=== PATIENT | female | born 1970 | race Caucasian/White ===

== ENCOUNTER 2016-11-17 07:39 | Emergency (ER) | payer OTHER ==
[~2016-11-17] VITALS: Ht 167.6 cm; Wt 95.2 kg
[~2016-11-17 07:39] MED LIST: ADDERALL XR 3030 MG PO; ALBUTEROL SULF8.5 GM IH; ALPRAZOLAM ER2 MG; ALPRAZOLAM0.5 MG PO; ALPRAZOLAM1 MG PO; AMOXICILLIN500 M1 PO; AMOXICILLIN500 MG PO; AMPHETAMINE SAL30 MG PO; ANTIVERT25 MG PO; ASPIRIN325 MG PO; ATARAX,VISTARIL25 MG PO; ATARAX,VISTARIL50 MG PO; ATIVAN1 MG PO; AUGMENTIN875 MG PO; BACTRIM,SEPT1 TABLET PO; BENTYL10 MG PO; BETHANECHOL CHL25 MG PO; BUSPAR15 MG PO; BUSPAR30 MG; BUSPAR30 MG PO; BUSPIRONE HCL10 MG PO; CLEOCIN300 MG PO; CLONAZEPAM0.5 MG PO; CLONAZEPAM1 MG PO; CLONAZEPAM2 MG; CYCLOBENZAPRINE10 MG PO; CYMBALTA60 MG PO; DESYREL 150 MG150 MG PO; DESYREL100 MG PO; DEXILANT30 MG PO; DEXTROAMP-AMPHE10 MG PO; DIFLUCAN150 MG PO; DILAUDID2 MG NG; ENDOCET 5-3251 EACH; ESCITALOPRAM OX20 MG; ESCITALOPRAM OX20 MG PO; EXCEDRIN MIGRA1 EAC3 PO; FLEXERIL10 MG PO; FLEXERIL5 MG PO; GABAPENTIN300 MG; GABAPENTIN400 MG PO; GABAPENTIN600 MG PO; GABAPENTIN800 MG PO; GENTAMICIN SULFA5 ML LEFT EYE; HYDROCHLOROTH12.5 M1 PO; HYDROCHLOROTHIA25 MG; HYDROCHLOROTHIA25 MG PO; HYDROCODON-ACE1 EAC7 PO; HYDROCODON-ACE1 EACH; HYDROCODONE BT1 EACH; HYDROXYZINE PAM50 MG PO; IBUPROFEN100 M1 PO; IBUPROFEN600 MG PO; IBUPROFEN800 MG; INDOCIN50 MG PO; KEFLEX500 MG PO; KLONOPIN0.5 M1 PO; KLONOPIN1 MG PO; KLONOPIN2 MG PO; LAMICTAL PO; LAMICTAL100 MG PO; LAMICTAL200 MG PO; LAMICTAL25 MG PO; LAMICTAL5 MG PO; LAMOTRIGINE200 MG; LAMOTRIGINE200 MG PO; LEXAPRO10 MG PO; LEXAPRO20 MG PO; LIDOCAINE VISCOUS; LIDOCAINE20 MG/1 M5 MM; LIDOCAINE20 MG/1 M5 PO; LISINOPRIL10 MG PO; LITHIUM CARBON300 MG PO; LOPRESSOR25 MG PO; LORTAB 5-325 M1 EACH PO; MAALOX ADVANCE355 ML PO; MACROBID100 MG PO; MECLIZINE HCL25 MG PO; MEDROL DOSEPAK4 MG PO; MELOXICAM7.5 MG PO; METHADONE HCL40 MG PO; METOPROLOL TART25 MG; MILLIPRED DP5 MG PO; MOBIC15 MG PO; MOBIC7.5 MG PO; MORPHINE SULFAT30 M2; MOTRIN600 MG PO; MOTRIN800 MG PO; MULTI-VITAMIN1 EAC1 PO; MULTIVITAMIN1 EAC2 PO; MYCOSTATIN 100,60 ML PO; Motrin PO; NAPROSYN500 MG PO; NAPROXEN500 MG PO; NEURONTIN100 MG PO; NEURONTIN400 MG PO; NEURONTIN600 MG PO; NEURONTIN800 MG PO; NEXIUM20 MG PO; NEXIUM40 MG; NEXIUM40 MG PO; NOHOMEMEDS; NORCO 5/3251 TABLET PO; NORCO 7.5/321 TABLET PO; NYSTATIN15 GM TP; OMEPRAZOLE20 M1 PO; OMEPRAZOLE20 MG PO; OXYCODONE HCL10 MG; OXYCODONE HCL5 MG PO; OXYCODONE-APAP1 EACH; PEN-VEE K,VEET500 MG PO; PERCOCET 5/31 TABLET PO; PERMETHRIN60 GM TP; PREDNISONE20 MG PO; PREDNISONE50 MG PO; PRILOSEC40 MG PO; PROAIR HFA8.5 GM; PROMETHAZINE HC50 M1 PO; PROTONIX40 MG PO; PROZAC20 MG PO; PYRIDIUM200 MG PO; Percocet 5/325,Endoc PO; QUETIAPINE FUM100 MG PO; REGLAN10 MG PO; RISPERDAL3 MG PO; ROBAXIN500 MG PO; SAPHRIS10 MG; SAPHRIS10 MG SL; SAVELLA50 MG; SAVELLA50 MG PO; SEROQUEL XR400 MG PO; SEROQUEL12.5 MG PO; SEROQUEL200 MG PO; SEROQUEL50 MG PO; STRATTERA25 MG PO; SUCRALFATE1 GM PO; TESSALON PERLE100 MG PO; TESSALON200 MG PO; TOPAMAX100 MG PO; TOPAMAX50 MG PO; TOPROL XL6.25 MG PO; TRAMADOL HCL50 MG; TRAMADOL HCL50 MG PO; TRAZODONE HCL100 MG PO; TRAZODONE HCL150 MG PO; TRAZODONE HCL300 MG PO; TRAZODONE HCL50 MG PO; TRILEPTAL150 MG PO; TYLENOL WITH C1 EACH PO; TYLENOL325 M1 PO; TYLOX1 CAPSULE PO; ULTRAM50 MG PO; VALIUM5 MG PO; VERAPAMIL HCL120 M1 PO; VIBRAMYCIN100 MG PO; XANAX XR2 MG; XANAX0.25 MG PO; XANAX0.5 MG PO; XANAX1 MG PO; XANAX2 MG PO; Xanax PO; ZANTAC150 MG PO; ZIPRASIDONE HCL60 MG PO; ZOFRAN ODT4 MG PO; ZOFRAN4 MG PO; ZOFRAN8 MG PO
[2016-11-17] MEDS ORDERED: ZOFRAN ODT4 MG PO (09:12)
[2016-11-17 10:19] VITALS: BP 133/99
== END 2016-11-17 10:19 | disposition home or self-care (01) ==
LOC: EME 07:39
DX: K52.9 Noninfective gastroenteritis and colitis, unspecified (principal); I10 Essential (primary) hypertension; K21.9 Gastro-esophageal reflux disease without esophagitis; F17.200 Nicotine dependence, unspecified, uncomplicated
CPT/HCPCS: 74020; 99281; 99282

== ENCOUNTER 2017-04-08 11:14 | Emergency (ER) | payer OTHER ==
[~2017-04-08] VITALS: Ht 167.6 cm; Wt 101.8 kg
[2017-04-08] MEDS ORDERED: ATIVAN2 MG PO (11:43)
[2017-04-08 12:19] VITALS: BP 148/86
== END 2017-04-08 12:19 | disposition home or self-care (01) ==
LOC: EME 11:14
DX: F11.23 Opioid dependence with withdrawal (principal); R19.7 Diarrhea, unspecified; F17.200 Nicotine dependence, unspecified, uncomplicated
CPT/HCPCS: 99281; 99283

== ENCOUNTER 2017-10-09 08:10 | Emergency (ER) | payer OTHER ==
[~2017-10-09] VITALS: Ht 167.6 cm; Wt 98.3 kg
[~2017-10-09 08:10] MED LIST changes: +ATIVAN2 MG PO
[2017-10-09 10:34] LABS: HEMATOCRIT 41.7 % (36.0-46.0); MCH 30.2 PG (29.0-34.0); MCHC 33.1 G/DL (30.0-36.0); MCV 91.2 FL (83-99); MEAN PLAT.VOLUME 9.5 uM^3 (9.5-12.4); PLATELET COUNT 202 K/uL (156-360); RBC DIS.WIDTH-CV 12.5 % (11.8-14.6); RBC DIS.WIDTH-SD 41.5 % (39-53); RED BLOOD COUNT 4.57 M/uL (3.80-5.20); WHITE BLOOD COUNT 4.2 K/uL (4.1-10.2)
[2017-10-09 10:44] LABS: CHLORIDE 99 mEq/L (99-109); POTASSIUM 3.9 mEq/L (3.7-5.4); SODIUM 137 mEq/L (136-147)
[2017-10-09 10:46] LABS: GLUCOSE 87 mg/dL (70-99)
[2017-10-09 10:48] LABS: ANION GAP 12 MEQ/L (2-14); TOTAL BILIRUBIN 0.7 mg/dL (0.0-1.0)
[2017-10-09 10:50] LABS: ALKALINE PHOSPHATASE 73 IU/L (3-129); GFR ESTIMATE (CALCULATED) > 59 mL/min/
[2017-10-09 10:51] LABS: UREA NITROGEN (BUN) 7 mg/dL (9-23)
[2017-10-09 11:15] LABS: ERTH.SED.RATE 16 MM/HR (0-20)
[2017-10-09 11:18] LABS: C-REACTIVE PROTEIN 4.6 MG/L (0-10); SAMPLE HEMOLYSIS CHECK 0; SAMPLE ICTERIC CHECK 0; SAMPLE LIPEMIA CHECK 0
[2017-10-09 14:02] VITALS: BP 139/97
== END 2017-10-09 14:05 | disposition home or self-care (01) ==
LOC: EME 08:10
PROVIDERS: Nurse Practitioner Family
DX: S02.5XXA Fracture of tooth (traumatic), initial encounter for closed fracture (principal); R51 Headache; G89.29 Other chronic pain; M54.2 Cervicalgia; I10 Essential (primary) hypertension; K21.9 Gastro-esophageal reflux disease without esophagitis; F31.9 Bipolar disorder, unspecified; F41.9 Anxiety disorder, unspecified; F32.9 Major depressive disorder, single episode, unspecified; Z88.1 Allergy status to other antibiotic agents; Z88.8 Allergy status to other drugs, medicaments and biological substances
CPT/HCPCS: 70498; 80053; 85027; 85651; 86140